=== PATIENT | male | born 1950 | race Caucasian/White ===

== ENCOUNTER 2017-08-07 17:38 | Inpatient (IN) | payer MEDICARE ==
[~2017-08-07] VITALS: Ht 172.7 cm; Wt 103.5 kg
--- NOTE | ~2017-08-07 | ST ---
[place], [place] EXERCISE STRESS TEST REPORT NAME: ANIBAL RODRIGUEZ SR UNIT #: [id number] ROOM: 519 DOCTOR: CHA LEPE MD BIRTHDATE: [birth year] DOS: 08/08/2017 REFERRING PHYSICIAN: Dr. Dugan. INDICATION: Precordial chest pain. Arrhythmias, nonsustained ventricular tachycardia. The patient underwent standard Bowen protocol stress testing. The patient's baseline EKG is normal sinus rhythm, nonspecific ST-T wave changes, heart rate 60, blood pressure 140/72. The patient exercised 5 minutes and 5 seconds, reaching a maximal heart rate 155, with a peak blood pressure 204/84. The patient experienced nonlimiting chest pain at peak exercise. The patient is noted to have [address] depressions, was initially started 3 minutes and resolved fully at 6 minutes of recovery. SUMMARY OF FINDINGS: 1. Abnormal stress EKG with high risk features including [address] depressions, angina with exertion and nonsustained ventricular tachycardia. 2. The patient's Gordon Treadmill score is -14 suggesting high risk prognosis. 3. Please see separate report for perfusion scan results. CHA LEPE MD CM:STRESS:EXERCISE STRESS TEST REPORT [id number] CHA LEPE MD
[2017-08-07 17:42] VITALS: BP 143/78
[2017-08-07 18:19] LABS: BASO # 0.1 10*3/uL (0.0-0.1); BASO % 1.1 % (0.0-1.0); EOS # 0.1 10*3/uL (0.0-0.4); EOS % 2.5 % (1.0-4.0); HEMOGLOBIN 13.6 g/dl (14.0-18.0); LYMPH # 1.3 10*3/uL (1.3-4.4); MEAN CELL VOLUME 88.4 fl (80.0-94.0); MEAN CORPUSCULAR HGB 29.3 pg (27.0-31.0); MEAN CORPUSCULAR HGB CONC 33.2 g/dl (33.0-37.0); MEAN PLATELET VOLUME 10.3 fl (9.6-12.3); MONO # 0.5 10*3/uL (0.1-1.0); MONO % 11.3 % (3.0-9.0); NEUT # 2.7 10*3/uL (2.3-7.9); NEUT % 57.5 % (47.0-73.0); PLATELET COUNT AUTOMATED 133 10*3/uL (130-400); RED BLOOD COUNT 4.64 10*6/uL (4.50-5.90); RED CELL DISTRI WIDTH 13.1 % (0-14.5); WHITE BLOOD COUNT 4.7 10*3/uL (4.8-10.8)
[2017-08-07 18:37] LABS: ALBUMIN 3.6 gm/dl (3.1-4.5); ALKALINE PHOSPHATASE 92 U/L (45-117); BUN 7 mg/dl (7-24); CHLORIDE 108 mmol/L (98-107); CREATININE 1.18 mg/dL (0.70-1.30); SGOT/AST 22 IU/L (3-35); SGPT/ALT 39 U/L (12-78); SODIUM 142 mmol/L (136-145); TOTAL PROTEIN 7.3 gm/dL (6.4-8.2)
[2017-08-07 18:42] LABS: TROPONIN I < 0.015 ng/ml (<0.045)
[2017-08-07 21:00] VITALS: BP 150/86
[2017-08-08] VITALS: BP 141/75; BP 156/83
[2017-08-08 06:24] LABS: BASO # 0.1 10*3/uL (0.0-0.1); BASO % 1.2 % (0.0-1.0); EOS # 0.1 10*3/uL (0.0-0.4); EOS % 2.4 % (1.0-4.0); HEMOGLOBIN 13.4 g/dl (14.0-18.0); LYMPH # 1.6 10*3/uL (1.3-4.4); LYMPH % 38.4 % (27.0-41.0); MEAN CELL VOLUME 89.3 fl (80.0-94.0); MEAN CORPUSCULAR HGB 29.2 pg (27.0-31.0); MEAN CORPUSCULAR HGB CONC 32.7 g/dl (33.0-37.0); MEAN PLATELET VOLUME 10.6 fl (9.6-12.3); MONO # 0.5 10*3/uL (0.1-1.0); MONO % 10.9 % (3.0-9.0); NEUT % 46.6 % (47.0-73.0); PLATELET COUNT AUTOMATED 132 10*3/uL (130-400); RED BLOOD COUNT 4.59 10*6/uL (4.50-5.90); RED CELL DISTRI WIDTH 13.1 % (0-14.5); WHITE BLOOD COUNT 4.2 10*3/uL (4.8-10.8)
[2017-08-08 06:47] LABS: ALBUMIN 3.4 gm/dl (3.1-4.5); ALKALINE PHOSPHATASE 89 U/L (45-117); BUN 6 mg/dl (7-24); CHLORIDE 109 mmol/L (98-107); CHOLESTEROL 160 mg/dL (<200); CREATININE 1.06 mg/dL (0.70-1.30); FREE T4 1.15 ng/dl (0.76-1.46); HDL CHOLESTEROL 23 mg/dl (40-60); LDL CHOLESTEROL 98 mg/dL (9-159); PHOSPHOROUS 2.8 mg/dL (2.5-4.9); POTASSIUM 3.9 mmol/L (3.5-5.1); SGOT/AST 21 IU/L (3-35); SGPT/ALT 34 U/L (12-78); SODIUM 143 mmol/L (136-145); TOTAL PROTEIN 6.9 gm/dL (6.4-8.2); TRIGLYCERIDES 196 mg/dl (<150); VLDL CHOLESTEROL 39 mg/dL (6-40)
[2017-08-08 08:00] VITALS: BP 138/62
[2017-08-08 08:32] LABS: VITAMIN D, 25-HYDROXY 14.3 ng/mL (30-100)
[2017-08-08 12:00] VITALS: BP 143/74
[2017-08-08] MEDS ORDERED: VITAMIN D-32000 UNIT PO (13:28)
[2017-08-08 16:00] VITALS: BP 138/71
[2017-08-08 20:00] VITALS: BP 130/69
[2017-08-09] VITALS: BP 119/64
[2017-08-09 08:00] VITALS: BP 141/82
== END 2017-08-09 10:44 | disposition other institution (70) | DRG 313 ==
LOC: ED 17:38 → 5E 19:52 → EDHOLD 19:52 → 5E 20:14
PROVIDERS: Internal Medicine Hospice and Palliative Medicine; Physician Assistant
PROC: 4A02XM4 Measurement of Cardiac Total Activity, External Approach (ICD-10-PCS; principal; 2017-08-08)
DX: R07.89 Other chest pain (principal); E87.8 Other disorders of electrolyte and fluid balance, not elsewhere classified; E83.41 Hypermagnesemia; D64.9 Anemia, unspecified; E87.6 Hypokalemia; K21.9 Gastro-esophageal reflux disease without esophagitis; Z90.49 Acquired absence of other specified parts of digestive tract; Z80.1 Family history of malignant neoplasm of trachea, bronchus and lung; Z82.0 Family history of epilepsy and other diseases of the nervous system

== ENCOUNTER 2020-12-01 01:56 | Emergency (ER) | payer MEDICARE ==
[~2020-12-01] VITALS: Ht 170.1 cm; Wt 102.1 kg
[~2020-12-01 01:56] MED LIST: VITAMIN D-32000 UNIT PO
== END 2020-12-01 03:28 | disposition home or self-care (01) ==
LOC: ED 01:56
DX: R10.31 Right lower quadrant pain (principal); R14.0 Abdominal distension (gaseous); Z87.891 Personal history of nicotine dependence

== ENCOUNTER 2021-01-30 16:55 | Observation (INO) | payer MEDICARE ==
[~2021-01-30] VITALS: Ht 170.1 cm; Wt 101.6 kg
[2021-01-30 17:12] VITALS: BP 107/39
[2021-01-30] MEDS ORDERED: K-TAB ER8 MEQ PO (17:13)
[2021-01-30] MEDS ORDERED: BRILINTA90 M1 PO (17:14)
[2021-01-30] MEDS ORDERED: ZESTORETIC 10-1 EACH PO (17:14)
[2021-01-30] MEDS ORDERED: LIPITOR40 MG PO (17:15)
[2021-01-30] MEDS ORDERED: LOPRESSOR25 MG PO (17:15)
[2021-01-30] MEDS ORDERED: OMEPRAZOLE20 M2 PO (17:15)
[2021-01-30 17:42] VITALS: BP 110/48
[2021-01-30 19:14] LABS: BASO % 0.3 % (0.0-1.0); HEMATOCRIT 37.8 % (42.0-52.0); LYMPH # 0.7 10*3/uL (1.3-4.4); LYMPH % 18.6 % (27.0-41.0); MEAN CELL VOLUME 88.9 fl (80.0-94.0); MEAN CORPUSCULAR HGB 29.9 pg (27.0-31.0); MEAN CORPUSCULAR HGB CONC 33.6 g/dl (33.0-37.0); MEAN PLATELET VOLUME 10.9 fl (9.6-12.3); MONO # 0.5 10*3/uL (0.1-1.0); MONO % 14.6 % (3.0-9.0); NEUT # 2.5 10*3/uL (2.3-7.9); PLATELET COUNT AUTOMATED 139 10*3/uL (130-400); RED BLOOD COUNT 4.25 10*6/uL (4.50-5.90); RED CELL DISTRI WIDTH 13.2 % (0-14.5); WHITE BLOOD COUNT 3.7 10*3/uL (4.8-10.8)
[2021-01-30 19:30] LABS: CREATININE 2.33 mg/dL (0.70-1.30); POTASSIUM 4.3 mmol/L (3.5-5.1); TOTAL PROTEIN 8.2 gm/dL (6.4-8.2)
[2021-01-30 19:35] VITALS: BP 117/61
[2021-01-30 22:06] VITALS: BP 129/63
[2021-01-31] VITALS (7 sets, daily range): BP systolic 94–126; BP diastolic 46–68
[2021-01-31 06:18] LABS: BASO % 0.3 % (0.0-1.0); HEMATOCRIT 37.1 % (42.0-52.0); LYMPH # 1.1 10*3/uL (1.3-4.4); LYMPH % 28.5 % (27.0-41.0); MEAN CELL VOLUME 90.3 fl (80.0-94.0); MEAN CORPUSCULAR HGB 29.7 pg (27.0-31.0); MEAN CORPUSCULAR HGB CONC 32.9 g/dl (33.0-37.0); MEAN PLATELET VOLUME 11.2 fl (9.6-12.3); MONO # 0.6 10*3/uL (0.1-1.0); MONO % 14.9 % (3.0-9.0); NEUT # 2.1 10*3/uL (2.3-7.9); NEUT % 55.8 % (47.0-73.0); PLATELET COUNT AUTOMATED 157 10*3/uL (130-400); RED BLOOD COUNT 4.11 10*6/uL (4.50-5.90); RED CELL DISTRI WIDTH 13.4 % (0-14.5); WHITE BLOOD COUNT 3.7 10*3/uL (4.8-10.8)
[2021-01-31 06:27] LABS: ALBUMIN 2.8 gm/dl (3.1-4.5); CREATININE 1.93 mg/dL (0.70-1.30); POTASSIUM 4.7 mmol/L (3.5-5.1); TOTAL PROTEIN 7.9 gm/dL (6.4-8.2)
[2021-01-31 06:34] LABS: ACT PARTIAL THROMBO TIME 32.8 SECONDS (20.0-32.1)
[2021-01-31 06:38] LABS: THYROID STIM HORMONE (HS) 0.75 uIU/ml (0.358-4.75)
[2021-01-31 07:23] LABS: FERRITIN 528.4 ng/mL (22.0-322.0); VITAMIN D, 25-HYDROXY 67.6 ng/mL (30-100)
[2021-01-31] MEDS ORDERED: PROAIR HFA8.5 GM INH (12:22)
== END 2021-01-31 14:56 | disposition home or self-care (01) ==
LOC: ED 16:55 → 4E 19:04 → EDHOLD 19:04 → 4E 19:04 → EDHOLD 22:25 → 4E 01-31 07:03 → EDHOLD 01-31 07:03 → 4E 01-31 07:03
PROVIDERS: Family Medicine; Physician Assistant; ADMIT Internal Medicine; ATTEND Internal Medicine
DX: U07.1 COVID-19 (principal); J12.82 Pneumonia due to coronavirus disease 2019; D72.819 Decreased white blood cell count, unspecified; D64.9 Anemia, unspecified; E83.41 Hypermagnesemia; E87.1 Hypo-osmolality and hyponatremia; N17.0 Acute kidney failure with tubular necrosis; E43 Unspecified severe protein-calorie malnutrition; K21.9 Gastro-esophageal reflux disease without esophagitis; R73.9 Hyperglycemia, unspecified; Z79.899 Other long term (current) drug therapy; Z79.01 Long term (current) use of anticoagulants

== ENCOUNTER → 2022-01-25 | Outpatient (CLI) | payer MEDICARE ==
[~2022-01-25] MED LIST changes: +BRILINTA90 M1 PO; +DECADRON6 M1 PO; +K-TAB ER8 MEQ PO; +LIPITOR40 MG PO; +LOPRESSOR25 MG PO; +OMEPRAZOLE20 M2 PO; +PROAIR HFA8.5 GM INH; +ZESTORETIC 10-1 EACH PO
[2022-01-25 15:19] LABS: BILIRUBIN Negative (Negative); BLOOD Negative (Negative); CLARITY Clear (Clear); COLOR Yellow (Yellow); GLUCOSE Negative (Negative); KETONE Negative (Negative); LEUKO ESTERASE Negative (Negative); NITRITE Negative (Negative); UROBILINOGEN 0.2 E.U./dl (0.0-1.0)
[2022-01-25 16:30] LABS: BACTERIA TRACE; WBC 0-2 wbc/hpf (0-5)
[2022-01-30 20:05] LABS: % FREE PSA 22.5 % (.); FREE PSA 2.182 ng/mL (.)
== END | disposition home or self-care (01) ==
LOC: LAB 14:23
PROVIDERS: ATTEND Internal Medicine
DX: R97.20 Elevated prostate specific antigen [PSA] (principal)